=== PATIENT | male | born 1970 | race Caucasian/White ===

== ENCOUNTER 2016-04-03 09:21 | Outpatient (CLI) | payer BC | END 2016-04-03 09:22 | disposition home or self-care (01) | DX: Z00.00 Encounter for general adult medical examination without abnormal findings (principal); R20.9 Unspecified disturbances of skin sensation ==

== ENCOUNTER 2016-07-08 15:20 | Outpatient (CLI) | payer BC | END 2016-07-08 15:21 | disposition home or self-care (01) | DX: G47.30 Sleep apnea, unspecified (principal); G47.8 Other sleep disorders; R06.83 Snoring ==

== ENCOUNTER 2016-09-04 11:36 | Outpatient (CLI) | payer BC | END 2016-09-04 11:37 | disposition home or self-care (01) | LOC: LAB.R 11:36 | PROVIDERS: ATTEND Family Medicine | DX: N39.0 Urinary tract infection, site not specified (principal); Z11.3 Encounter for screening for infections with a predominantly sexual mode of transmission | CPT/HCPCS: 87086; 87491; 87591 ==

== ENCOUNTER 2017-02-11 14:29 | Outpatient (CLI) | payer BC | END 2017-02-11 14:30 | disposition home or self-care (01) | LOC: SC 14:29 | PROVIDERS: ATTEND Nurse Practitioner Family | DX: G47.33 Obstructive sleep apnea (adult) (pediatric) (principal) | CPT/HCPCS: 99212; 99214 ==

== ENCOUNTER 2017-03-26 08:46 | Outpatient (CLI) | payer BC | END 2017-03-26 08:47 | disposition home or self-care (01) | LOC: SC 08:46 | PROVIDERS: ATTEND Nurse Practitioner Family | DX: G47.33 Obstructive sleep apnea (adult) (pediatric) (principal) | CPT/HCPCS: 99212; 99214 ==

== ENCOUNTER 2017-12-05 17:53 | Outpatient (CLI) | payer BC ==
--- NOTE | 2017-12-05 22:24 | XRAY Report ---
Reason: Radiculopathy, Lumbosacral region Procedure Date: 12/05/2017 Accession Number: [id number] / [id number] Procedure: XR - Lumbar Spine 2 View CPT Code: FULL RESULT: EXAM: LUMBOSACRAL SPINE RADIOGRAPHY EXAM DATE: 12/05/2017 06:38 PM. CLINICAL HISTORY: Chronic lumbar spine pain, worse x1 week. COMPARISONS: None. TECHNIQUE: 2 views. FINDINGS: Alignment: Mild right convex curvature centered at L2 measuring approximately 13 degrees. No spondylolisthesis. Bones: Five [id number]-[id number] lumbar vertebral bodies are present. No fractures or bone lesions. Disks: Multilevel disk height loss and endplate degenerative change, moderate at L1-L2 and mild at L4-L5 and L5-S1. Mild anterior endplate osteophytosis at L2-L3. Facets: No degenerative changes. Sacroiliac Joints: Unremarkable. Soft Tissues: Normal. The visualized bowel gas pattern is normal. IMPRESSION: 1. Mild right convex curvature centered at L2. 2. Multilevel degenerative disk disease, most pronounced and moderate at L1-L2. 3. No acute bony abnormality. [facility]
== END 2017-12-05 17:54 | disposition home or self-care (01) ==
LOC: DI 17:53
PROVIDERS: ATTEND Family Medicine
DX: M51.17 Intervertebral disc disorders with radiculopathy, lumbosacral region (principal); M51.36 Other intervertebral disc degeneration, lumbar region; M21.372 Foot drop, left foot
CPT/HCPCS: 72100

== ENCOUNTER 2018-01-18 11:17 | Outpatient (CLI) | payer BC | END 2018-01-18 11:18 | disposition home or self-care (01) | LOC: DI 11:17 | PROVIDERS: ATTEND Family Medicine | DX: Z53.9 Procedure and treatment not carried out, unspecified reason (principal) ==